=== PATIENT | male | born 1950 | race Caucasian/White ===

== ENCOUNTER 2021-05-16 13:19 | Inpatient (IN) | payer OTHER ==
[~2021-05-16] VITALS: Ht 185.4 cm; Wt 121.1 kg
[2021-05-16 14:13] LABS: BASOPHILS ABSOLUTE AUTO 0.03 K/mm3 (0.00-0.23); BASOPHILS PERCENT AUTO 1 % (0-2); EOSINOPHILS ABSOLUTE AUTO 0.08 K/mm3 (0.00-0.68); EOSINOPHILS PERCENT AUTO 2 % (0-6); Hematocrit 40.7 % (37.0-53.0); Hemoglobin 13.7 g/dL (13.5-17.5); IMMATURE GRAN ABSOLUTE AUTO 0.02 K/mm3 (0.00-0.10); IMMATURE GRAN PERCENT AUTO 0 % (0-1); LYMPHOCYTES ABSOLUTE AUTO 1.25 K/mm3 (0.84-5.20); LYMPHOCYTES PERCENT AUTO 26 % (21-46); MONOCYTES ABSOLUTE AUTO 0.77 K/mm3 (0.16-1.47); MONOCYTES PERCENT AUTO 16 % (4-13); Mean Corpuscular HGB 32.2 pg (26.0-34.0); Mean Corpuscular HGB Conc 33.7 g/dL (31.5-36.5); Mean Corpuscular Volume 96 fL (80-100); Mean Platelet Volume 9.9 fL (9.1-12.4); NEUTROPHILS ABSOLUTE AUTO 2.69 K/mm3 (1.96-9.15); NEUTROPHILS PERCENT AUTO 56 % (41-73); Platelet Count 200 K/mm3 (150-400); Red Blood Cell Count 4.25 M/mm3 (4.30-5.90); White Blood Cell Count 4.84 K/mm3 (4.00-11.30)
[2021-05-16 14:40] LABS: Alanine Aminotransfer (ALT/SGP 54 U/L (12-78); Albumin, Blood 3.3 g/dL (3.4-5.0); Albumin/Globulin Ratio 0.9 (0.8-1.8); Alk Phos 68 U/L (50-136); Anion Gap 8 mmol/L (6-16); Aspartate Aminotrans (AST/SGOT 40 U/L (12-37); Bilirubin, Total 0.8 mg/dL (0.1-1.0); Blood Urea Nitrogen 23 mg/dL (8-24); Bun/Creatinine Ratio 15.8 (12.0-20.0); CO2, Blood 26 mmol/L (21-32); Calcium, Blood 8.7 mg/dL (8.5-10.1); Chloride, Blood 107 mmol/L (98-108); Creatinine, Blood 1.46 mg/dL (0.60-1.20); Globulin, Blood 3.6 g/dL (2.2-4.0); Glomerular Filtration Rate 48 (60-); Glucose, Blood 104 mg/dL (70-99); Potassium, Blood 3.7 mmol/L (3.5-5.5); Sodium, Blood 141 mmol/L (136-145); Total Protein, Blood 6.9 g/dL (6.4-8.2); Troponin I <0.015 ng/mL (0.000-0.040)
[2021-05-16 21:48] LABS: Thyroid Stimulating Hormone 0.545 uIU/mL (0.360-4.800)
[2021-05-17 04:46] LABS: BASOPHILS ABSOLUTE AUTO 0.03 K/mm3 (0.00-0.23); BASOPHILS PERCENT AUTO 1 % (0-2); EOSINOPHILS ABSOLUTE AUTO 0.04 K/mm3 (0.00-0.68); EOSINOPHILS PERCENT AUTO 1 % (0-6); Hematocrit 41.1 % (37.0-53.0); Hemoglobin 13.9 g/dL (13.5-17.5); IMMATURE GRAN ABSOLUTE AUTO 0.02 K/mm3 (0.00-0.10); IMMATURE GRAN PERCENT AUTO 0 % (0-1); LYMPHOCYTES ABSOLUTE AUTO 0.76 K/mm3 (0.84-5.20); LYMPHOCYTES PERCENT AUTO 12 % (21-46); MONOCYTES ABSOLUTE AUTO 0.57 K/mm3 (0.16-1.47); MONOCYTES PERCENT AUTO 9 % (4-13); Mean Corpuscular HGB 32.6 pg (26.0-34.0); Mean Corpuscular HGB Conc 33.8 g/dL (31.5-36.5); Mean Corpuscular Volume 97 fL (80-100); Mean Platelet Volume 10.2 fL (9.1-12.4); NEUTROPHILS ABSOLUTE AUTO 5.19 K/mm3 (1.96-9.15); NEUTROPHILS PERCENT AUTO 79 % (41-73); Platelet Count 204 K/mm3 (150-400); RDW Coefficient Variation 13.2 % (11.7-14.2); Red Blood Cell Count 4.26 M/mm3 (4.30-5.90); White Blood Cell Count 6.61 K/mm3 (4.00-11.30)
[2021-05-17 05:09] LABS: Anion Gap 8 mmol/L (6-16); Blood Urea Nitrogen 18 mg/dL (8-24); CO2, Blood 25 mmol/L (21-32); Calcium, Blood 8.5 mg/dL (8.5-10.1); Chloride, Blood 108 mmol/L (98-108); Creatinine, Blood 1.06 mg/dL (0.60-1.20); Glomerular Filtration Rate >60 (60-); Glucose, Blood 100 mg/dL (70-99); Sodium, Blood 141 mmol/L (136-145)
--- NOTE | 2021-05-17 05:47 | NUR ---
ADMISSION SUMMARY PT RECEIVED FROM ER VIA STRETCHER, AWAKE, A&OX4. ABLE TO MAKE NEEDS KNOWN. PT AMBULATES INDEPENDENTLY. PT ADMITTED WITH AFIB RVR. RESPIRATIONS EVEN AND UNLABORED, PT DENIES PAIN OR DISCOMFORT. BLE 2+ PITTING EDEMA. ADLS PROVIDED, SAFETY MEASURES IN PLACE. WILL CONTINUE TO MONITOR.
--- NOTE | 2021-05-17 11:13 | NUR ---
Echocardiogram completed.
[2021-05-17 15:03] LABS: Anion Gap 6 mmol/L (6-16); Blood Urea Nitrogen 19 mg/dL (8-24); Bun/Creatinine Ratio 17.3 (12.0-20.0); CO2, Blood 27 mmol/L (21-32); Calcium, Blood 8.3 mg/dL (8.5-10.1); Chloride, Blood 106 mmol/L (98-108); Glomerular Filtration Rate >60 (60-); Glucose, Blood 115 mg/dL (70-99); Potassium, Blood 3.9 mmol/L (3.5-5.5); Sodium, Blood 139 mmol/L (136-145)
--- NOTE | 2021-05-17 17:25 | NUR ---
SHIFT SUMMARY PATIENT DENIES PAIN, NAUSEA. PATIENT MEDICATED X2 WITH TYLENOL FOR LOW GRADE FEVER. PATIENT ON ROOM AIR THIS MORNING BUT HAD INCREASED RESPIRATIONS AND COURSE LUNG SOUNDS THIS AFTERNOON. OXYGEN SATURATION 91% ON 2L/NC. CALL TO DR. GARNER, NEW ORDERS FOR ONE TIME DOSE IV LASIX. HEART RATE SUSTAINING AFIB IN 130'S IN AM PER EBD SPECIAL EDUCATION TEACHER, RATE DROPPED TO 90'S THIS AFTERNOON. PATIENT HAS CHANGED HIS MIND AND WOULD LIKE CARDIOLOGY CONSULT. DR. GARNER INFORMED. PATIENT'S AT BEDSIDE THIS AFTERNOON. PATIENT UP SBA TO BR. PATIENT VERY ANXIOUS AND CAN BE IRRITABLE WITH CARE.
[2021-05-17] MEDS ORDERED: Hytrin1 MG PO (20:16)
--- NOTE | 2021-05-18 00:40 | NUR ---
2200: TELE STATION CALLED, PT FLIPPED BACK TO AFIB AND RETAINING IN 130'S bpm METOPROLOL GIVEN. 1230: PT IS STILL IN AFIB IN 130'S BPM. CHARGE NURSE CONSULTED. METOPROLOL GIVEN
--- NOTE | 2021-05-18 02:40 | NUR ---
insulator technician called, pt coverted back to NSR. Running at 80 BPM at this time. Pt not reporting any discomfort. VSS. On 3LNC
[2021-05-18 04:33] LABS: Hematocrit 38.7 % (37.0-53.0); Hemoglobin 13.3 g/dL (13.5-17.5); Mean Corpuscular HGB 32.9 pg (26.0-34.0); Mean Corpuscular HGB Conc 34.4 g/dL (31.5-36.5); Mean Corpuscular Volume 96 fL (80-100); Mean Platelet Volume 10.3 fL (9.1-12.4); Platelet Count 202 K/mm3 (150-400); RDW Coefficient Variation 12.9 % (11.7-14.2); RDW Standard Deviation 46.2 fL (35.1-46.3); Red Blood Cell Count 4.04 M/mm3 (4.30-5.90); White Blood Cell Count 9.89 K/mm3 (4.00-11.30)
--- NOTE | 2021-05-18 06:09 | NUR ---
END OF SHIFT REPORT: Pt A&Ox4. Able to epress needs. Pt in the 130-140's BPM range most of the night. Medicated per eMAR. HR sustaining in 130+ BPM. MD notified. Medicated per new orders. Pt is asymptomatic to tachycardia. On 3LNC satting above 90% Will continue to monitor HR.
--- NOTE | 2021-05-18 15:07 | NUR ---
900 DICUSSED H/R AT 120'S WITH CARLOS RAHMAN WITH TELE OFF FOR SHOWER IF KEEP SHORT WILL CHECK TO SEE IF ORDERS FOR CARDIAC CONSULT. 1030 CARDIAC CONSULT IN . CALLED DR SPRINGER TO COME SEE. 1130 WANTEric METOPROLOL PUSH X3, PUTTING ORDERS IN. FOR H/R. STATES WILL ADD DILTIAZEM. H/R 130 TOUCHING 150 1135 140/80, H/R 128-138 PER TELE PUSH METOPROLOL 1150 131/87 HR 128-130 PER TELE PUSH METOPROLOL 1155 133/90 HR 128-138 PER TELE 1200 H/R 125 PER TELE 1215 136/80 P 126 PUSH METOPROLOL 1220 P 118-120 PER TELE 1330 H/R 115-122 PER TELE 1430 H/R 110 PER TELE 1500 94 PER TELE
--- NOTE | 2021-05-18 16:04 | NUR ---
PER TELE NOW AFIB IN 80'S-90'S
[2021-05-18 16:09] LABS: SARS-Cov-2 (COVID-19) PCR, MMC NEGATIVE (NEGATIVE)
--- NOTE | 2021-05-18 18:21 | NUR ---
PT HAS BEEN PLEASANT TODAY. NO C/O PAIN. FAMILY REPORTS DAILY ETOH USE. NO NOTICED TREMORS, HALUCINATIONS, CONFUSIONS, ANXIETY. AND NONE REPORTED BY PT. ALTHOUGH DID NOT ASK DIRECTLY. H/R DOWN FROM 130-150 THIS AM TO 80-90 THIS AFT. PT STATES FEELS NO DIFFERENTLY. CONTINUES IN AFIB. COVID TEST NEGATIVE.. STARTED ON ABX THIS GABRIELLE. BED IN LOW POSITION, CALL LITE IN REACH, CALLS APPROP
[2021-05-19 04:49] LABS: BASOPHILS ABSOLUTE AUTO 0.03 K/mm3 (0.00-0.23); BASOPHILS PERCENT AUTO 0 % (0-2); EOSINOPHILS ABSOLUTE AUTO 0.07 K/mm3 (0.00-0.68); EOSINOPHILS PERCENT AUTO 1 % (0-6); Hematocrit 38.2 % (37.0-53.0); IMMATURE GRAN ABSOLUTE AUTO 0.06 K/mm3 (0.00-0.10); IMMATURE GRAN PERCENT AUTO 1 % (0-1); LYMPHOCYTES ABSOLUTE AUTO 1.02 K/mm3 (0.84-5.20); LYMPHOCYTES PERCENT AUTO 12 % (21-46); MONOCYTES ABSOLUTE AUTO 0.81 K/mm3 (0.16-1.47); MONOCYTES PERCENT AUTO 10 % (4-13); Mean Corpuscular HGB 32.1 pg (26.0-34.0); Mean Corpuscular Volume 94 fL (80-100); Mean Platelet Volume 10.3 fL (9.1-12.4); NEUTROPHILS ABSOLUTE AUTO 6.49 K/mm3 (1.96-9.15); NEUTROPHILS PERCENT AUTO 77 % (41-73); Platelet Count 222 K/mm3 (150-400); RDW Coefficient Variation 12.8 % (11.7-14.2); RDW Standard Deviation 44.7 fL (35.1-46.3); Red Blood Cell Count 4.05 M/mm3 (4.30-5.90); White Blood Cell Count 8.48 K/mm3 (4.00-11.30)
[2021-05-19 05:36] LABS: Albumin, Blood 2.5 g/dL (3.4-5.0); Anion Gap 7 mmol/L (6-16); Blood Urea Nitrogen 17 mg/dL (8-24); CO2, Blood 29 mmol/L (21-32); Calcium, Blood 8.5 mg/dL (8.5-10.1); Chloride, Blood 103 mmol/L (98-108); Glomerular Filtration Rate >60 (60-); Glucose, Blood 101 mg/dL (70-99); Magnesium, Blood 2.3 mg/dL (1.6-2.4); Phosphorus, Blood 2.3 mg/dL (2.5-4.9); Potassium, Blood 3.1 mmol/L (3.5-5.5); Sodium, Blood 139 mmol/L (136-145)
--- NOTE | 2021-05-19 06:32 | NUR ---
END OF SHIFT SUMMARY: PT A&Ox4. No new complaints tonight. Afib in 110s BPM per telegraph operator. Asymptomatic. VSS. Pt able to voice needs. Call light within reach.
[2021-05-19 09:37] LABS: Source, Urine Clean Catch
[2021-05-19 09:45] LABS: Bilirubin, Urine Neg (Neg); Blood, Urine Neg (Neg); Glucose Qualitative, Urine Neg (Neg); Ketones, Urine 2+ (Neg); Leukocyte Esterase, Urine Neg (Neg); Nitrite, Urine Neg (Neg); Protein, Urine 1+ (Neg); Urobilinogen, Urine 2+ (Normal)
[2021-05-19 10:12] LABS: Appearance, Urine Clear (Clear); Color, Urine Yellow (P-Yellow)
[2021-05-19] MEDS ORDERED: XARELTO20 MG PO (13:17)
[2021-05-19] MEDS ORDERED: DILT180 PO (13:17)
[2021-05-19] MEDS ORDERED: LACT PO (13:18)
[2021-05-19] MEDS ORDERED: AMOCLA875 PO (13:18)
[2021-05-19] MEDS ORDERED: FURO40 PO (13:19)
[2021-05-19] MEDS ORDERED: METO25ER PO (13:20)
[2021-05-19] MEDS ORDERED: POTCHL20ER PO (13:20)
[2021-05-19] MEDS ORDERED: METO50ER PO (13:25)
== END 2021-05-19 15:30 | disposition home or self-care (01) | DRG 308 ==
LOC: ER 13:19 → MEDS 22:07
PROVIDERS: Family Medicine; Internal Medicine; Physician Assistant; ADMIT Internal Medicine
DX: I48.91 Unspecified atrial fibrillation (principal); J96.01 Acute respiratory failure with hypoxia; I50.31 Acute diastolic (congestive) heart failure; N17.9 Acute kidney failure, unspecified; Z20.822 Contact with and (suspected) exposure to COVID-19; I11.0 Hypertensive heart disease with heart failure; R50.9 Fever, unspecified; E66.01 Morbid (severe) obesity due to excess calories; Z68.35 Body mass index [BMI] 35.0-35.9, adult; F10.10 Alcohol abuse, uncomplicated; D64.9 Anemia, unspecified; Z96.642 Presence of left artificial hip joint; Z96.653 Presence of artificial knee joint, bilateral; Z79.899 Other long term (current) drug therapy
CPT/HCPCS: 36415; 71045; 71046; 80048; 80053; 80069; 83036; 83605; 83735; 83880; 84145; 84443; 84484; 85025; 85027; 93005; 93010; 93306; 94760; 96361; 96365; 96375; 99285-25; A9270; J0696; J1940; J3475; J7030; U0004